=== PATIENT | male | born 1990 ===

== ENCOUNTER 2023-01-27 03:33 | Emergency (ER) | payer SELFPAY ==
[2023-01-27] MEDS ORDERED: Ibuprofen 600 MG Tab PO ONE (05:10)
== END 2023-01-27 05:24 ==
LOC: JD.ED 03:33
DX: S13.9XXA Sprain of joints and ligaments of unspecified parts of neck, initial encounter (principal); S20.219A Contusion of unspecified front wall of thorax, initial encounter; S05.12XA Contusion of eyeball and orbital tissues, left eye, initial encounter; F10.129 Alcohol abuse with intoxication, unspecified; X58.XXXA Exposure to other specified factors, initial encounter
CPT/HCPCS: 70450; 70486; 71250; 72125; 73130; 99284; A9270; 99283